=== PATIENT | female | born 1960 | race Caucasian/White ===

== ENCOUNTER → 2017-11-19 09:26 | Outpatient (CLI) | payer MEDICARE | END | disposition home or self-care (01) | LOC: D.RT 09:26 | DX: J44.9 Chronic obstructive pulmonary disease, unspecified (principal) ==

== ENCOUNTER → 2018-02-04 08:38 | Outpatient (CLI) | payer MEDICARE, MEDICAID ==
[~2018-02-04] VITALS: Ht 157.5 cm; Wt 117.0 kg
[2018-02-04 10:14] VITALS: Ht 157.5 cm; Wt 117.0 kg
== END | disposition home or self-care (01) ==
LOC: D.FANS 08:38
DX: E66.01 Morbid (severe) obesity due to excess calories (principal)

== ENCOUNTER → 2018-03-13 08:01 | Day surgery (SDC) | payer MEDICARE, MEDICAID ==
[2018-02-04 10:14] VITALS: BMI 47.2
[~2018-03-13 08:01] MED LIST: ALBUTEROL2.5 MG/3 M INH; AMBIEN10 MG PO; CELEBREX200 MG PO; LIPITOR40 MG PO; LYRICA150 MG PO; METOPROLOL TART50 MG PO; NORCO 10-325 TA1 TAB PO; NORVASC10 MG PO; RANITIDINE HCL150 M1 PO; SINGULAIR10 MG PO; SYMBICORT 16010.2 GM INH; ULTRAM50 MG PO
[2018-03-19 07:16] VITALS: BMI 46.9
== END | disposition home or self-care (01) ==
LOC: D.OPS 08:01
DX: E66.01 Morbid (severe) obesity due to excess calories (principal); Z01.812 Encounter for preprocedural laboratory examination

== ENCOUNTER 2018-03-19 06:20 | Day surgery (SDC) | payer MEDICARE, MEDICAID ==
[~2018-03-19] VITALS: Ht 157.5 cm; Wt 116.4 kg
[2018-03-19] MEDS ORDERED: RANITIDINE HCL150 M1 PO (07:02)
[2018-03-19] MEDS ORDERED: NORCO 10-325 TA1 TAB PO (07:03)
[2018-03-19 07:04] LABS: CALC OSMOLALITY 281 mosm/kg (275-300); CALCIUM 9.1 mg/dL (8.5-10.1); CARBON DIOXIDE 30.5 mmol/L (21.0-32.0); CHLORIDE - SERUM 103 mmol/L (98-107); CREATININE - SERUM 0.8 mg/dL (0.6-1.3); GLUCOSE 106 mg/dL (74-106); POTASSIUM - SERUM 3.9 mmol/L (3.5-5.1); SODIUM 141 mmol/L (136-145); UREA NITROGEN 15 mg/dL (7-18); eGFR NON AFRICAN AMERICAN 78 mL/min (90-120)
[2018-03-19] MEDS ORDERED: CELEBREX200 MG PO (07:04)
[2018-03-19] MEDS ORDERED: AMBIEN10 MG PO (07:04)
[2018-03-19] MEDS ORDERED: ULTRAM50 MG PO (07:05)
[2018-03-19] MEDS ORDERED: SINGULAIR10 MG PO (07:05)
[2018-03-19] MEDS ORDERED: ALBUTEROL2.5 MG/3 M INH (07:06)
[2018-03-19 07:07] LABS: BASOPHILS 0.9 % (0-2); EOSINOPHILS 4.2 % (0-7); HEMATOCRIT 37.5 % (36.0-48.0); HEMOGLOBIN 11.9 g/dL (12-16); IMMATURE GRANULOCYTES 0.3 % (0-5); LYMPHOCYTES 32.3 % (15-50); MCH 27.5 pg (26.0-34.0); MCHC 31.7 g/dL (31.0-37.0); MCV 86.6 fL (80.0-100.0); MEAN PLATELET VOLUME 11.9 fL (7.4-10.4); MONOCYTES 8.9 % (2-11); NEUTROPHILS 53.4 % (40-80); PLATELET COUNT 238 10x3/uL (130-400); RBC 4.33 10x6/uL (4.00-5.40); RDW 14.8 % (11.5-14.5); WBC 6.7 10x3/uL (4.8-10.8)
[2018-03-19] MEDS ORDERED: METOPROLOL TART50 MG PO (07:07)
[2018-03-19] MEDS ORDERED: LIPITOR40 MG PO (07:08)
[2018-03-19] MEDS ORDERED: NORVASC10 MG PO (07:08)
[2018-03-19] MEDS ORDERED: LYRICA150 MG PO (07:08)
[2018-03-19] MEDS ORDERED: SYMBICORT 16010.2 GM INH (07:09)
[2018-03-19 07:16] VITALS: BP 142/61; Ht 157.5 cm; Wt 116.4 kg
== END 2018-03-19 08:58 | disposition home or self-care (01) ==
LOC: D.OPS 06:20
PROVIDERS: Anesthesiology
DX: K21.9 Gastro-esophageal reflux disease without esophagitis (principal); K29.50 Unspecified chronic gastritis without bleeding; B96.81 Helicobacter pylori [H. pylori] as the cause of diseases classified elsewhere; E66.01 Morbid (severe) obesity due to excess calories; Z01.812 Encounter for preprocedural laboratory examination; Z68.42 Body mass index [BMI] 45.0-49.9, adult

== ENCOUNTER → 2018-04-04 10:14 | Outpatient (CLI) | payer MEDICARE, MEDICAID ==
[2018-03-19 07:16] VITALS: BMI 46.9
[2018-04-04 11:34] LABS: HELICOBACTER PYLORI IGG POSITIVE (NEGATIVE)
[2018-04-04 11:36] LABS: INR 0.97 (0.85-1.17); PROTIME 12.4 SECONDS (11.6-15.0)
[2018-04-04 11:37] LABS: APTT 30.4 SECONDS (22.8-39.4)
[2018-04-04 11:45] LABS: ALBUMIN 3.3 g/dL (3.4-5.0); ALKALINE PHOSPHATASE 87 U/L (46-116); ALT (SGPT) 25 U/L (10-68); BILIRUBIN - DIRECT 0.09 mg/dL (0.00-0.30); BILIRUBIN - INDIRECT 0.16 mg/dL (0.00-1.00); BILIRUBIN - TOTAL 0.25 mg/dL (0.2-1.3); CALC OSMOLALITY 285 mosm/kg (275-300); CALCIUM 8.5 mg/dL (8.5-10.1); CARBON DIOXIDE 30.2 mmol/L (21.0-32.0); CHLORIDE - SERUM 106 mmol/L (98-107); CHOL - HDL RATIO 4.1 ratio (2.3-4.1); CHOLESTEROL, TOTAL 176 mg/dL (0-200); CREATININE - SERUM 0.8 mg/dL (0.6-1.3); GLUCOSE 90 mg/dL (74-106); HDL CHOLESTEROL 43 mg/dL (32-96); LDL CHOLESTEROL 99 mg/dL (0-100); LDL-HDL RATIO 2.3 ratio (1.5-3.5); PROTEIN - SERUM 7.3 g/dL (6.4-8.2); SODIUM 143 mmol/L (136-145); THYROID STIMULATING HORMONE 2.84 uIU/mL (0.36-3.74); TRIGLYCERIDE 170 mg/dL (30-200); UREA NITROGEN 16 mg/dL (7-18); eGFR NON AFRICAN AMERICAN 78 mL/min (90-120)
[2018-04-04 12:02] LABS: BASOPHILS 1.1 % (0-2); EOSINOPHILS 5.4 % (0-7); HEMATOCRIT 36.8 % (36.0-48.0); HEMOGLOBIN 11.6 g/dL (12-16); IMMATURE GRANULOCYTES 0.2 % (0-5); LYMPHOCYTES 38.5 % (15-50); MCH 27.5 pg (26.0-34.0); MCHC 31.5 g/dL (31.0-37.0); MCV 87.2 fL (80.0-100.0); MEAN PLATELET VOLUME 12.2 fL (7.4-10.4); MONOCYTES 10.2 % (2-11); NEUTROPHILS 44.6 % (40-80); PLATELET COUNT 217 10x3/uL (130-400); RBC 4.22 10x6/uL (4.00-5.40); RDW 14.8 % (11.5-14.5); WBC 5.6 10x3/uL (4.8-10.8)
== END | disposition home or self-care (01) ==
LOC: D.LAB 10:14
PROVIDERS: Surgery
DX: Z01.812 Encounter for preprocedural laboratory examination (principal); I10 Essential (primary) hypertension; J44.9 Chronic obstructive pulmonary disease, unspecified; E78.5 Hyperlipidemia, unspecified

== ENCOUNTER → 2018-05-09 08:00 | Outpatient (CLI) | payer MEDICARE, MEDICAID ==
[2018-03-19 07:16] VITALS: BMI 46.9
== END | disposition home or self-care (01) ==
LOC: D.MAMMO 03-13 13:00
PROVIDERS: ATTEND Nurse Practitioner Family
DX: Z12.31 Encounter for screening mammogram for malignant neoplasm of breast (principal)

== ENCOUNTER 2018-05-21 08:39 | Inpatient (IN) | payer MEDICARE, MEDICAID ==
[~2018-05-21] VITALS: Ht 157.5 cm; Wt 118.6 kg
[2018-06-03 09:45] LABS: HEMATOCRIT 37.4 % (36.0-48.0); HEMOGLOBIN 11.8 g/dL (12-16); MCH 27.6 pg (26.0-34.0); MCHC 31.6 g/dL (31.0-37.0); MCV 87.4 fL (80.0-100.0); MEAN PLATELET VOLUME 11.3 fL (7.4-10.4); RBC 4.28 10x6/uL (4.00-5.40); RDW 14.9 % (11.5-14.5); WBC 5.6 10x3/uL (4.8-10.8)
[2018-06-03 09:59] LABS: ANION GAP 10.2 mmol/L (8-16); CALCIUM 8.8 mg/dL (8.5-10.1); CARBON DIOXIDE 31.9 mmol/L (21.0-32.0); CREATININE - SERUM 0.9 mg/dL (0.6-1.3); POTASSIUM - SERUM 4.1 mmol/L (3.5-5.1)
[2018-06-04 06:48] VITALS: BP 128/71; BMI 48.4
[2018-06-04 11:17] VITALS: BP 133/53
[2018-06-04 11:26] VITALS: BP 133/53; Ht 157.5 cm; Wt 118.6 kg
--- NOTE | 2018-06-04 11:46 | NUR ---
RECEIVED PT FROM VINNY RN IN [facility]OVERY, PT IS ASLEEP AND EASILY AWAKEDNED TO ANSWER QUESTIONS AND FOLLOW DIRECTIONS. 5 LAP SITES ON ABD AREA CDI. ADMINISTERED MEDS PER MAY AND SET UP ANIMAL SCIENCE INSTRUCTOR FOR PT, INSTRUCTED PT HOW TO USE ANIMAL SCIENCE INSTRUCTOR, ALL QUESTIONS ANSWERED, NO OTHER NEEDS VOICED. ASSUME PT CARE
--- NOTE | 2018-06-04 13:07 | NUR ---
PT LYING IN BED, EASILY AWAKENED, PT STATES PAIN IS NOT BAD IF SHE STAYS STILL, STATES SHE IS USING PAIN BUTTON, WATER AT BEDSIDE WITH MEDICINE CUPS, NO OTHER NEEDS VOICED, CONTINUE WITH PLAN OF CARE
--- NOTE | 2018-06-04 15:45 | NUR ---
ASSISTED PT TO RESTROOM PT INCISION ON UPPER RT SIDE DRAINING, CLEANED AND REINFORCED WITH LARGE BANDAGE. PLACED BANDAGE ON LOWER ABDOMEN TO SCRATCH THAT WAS BLEEDING WELL. SHORTENED PT IV LINE AND GAVE PT BOLUS PT INSOLE PRESSER MAXED TIME LIMIT. CHANGED PT GOWN. NO OTHER NEEDS VOICED, CONTINUE WITH PLAN OF CARE
[2018-06-04 21:11] VITALS: BP 151/66
[2018-06-05 01:32] VITALS: BP 160/74
--- NOTE | 2018-06-05 02:18 | NUR ---
AWAKE MEDS GIVEN PER MAR. RATES PAIN LEVEL #7 TORADOL 30MG IVP GIVEN FOR PAIN CONTROL.
[2018-06-05 05:18] VITALS: BP 148/62
[2018-06-05 07:13] LABS: BASOPHILS 0 % (0-2); EOSINOPHILS 0 % (0-7); HEMATOCRIT 31.7 % (36.0-48.0); HEMOGLOBIN 9.9 g/dL (12-16); IMMATURE GRANULOCYTES 0.2 % (0-5); LYMPHOCYTES 11.9 % (15-50); MCHC 31.2 g/dL (31.0-37.0); MCV 86.4 fL (80.0-100.0); MEAN PLATELET VOLUME 11.8 fL (7.4-10.4); MONOCYTES 7.4 % (2-11); NEUTROPHILS 80.5 % (40-80); PLATELET COUNT 190 10x3/uL (130-400); RBC 3.67 10x6/uL (4.00-5.40); RDW 15.2 % (11.5-14.5)
[2018-06-05 07:24] LABS: WBC 8.6 10x3/uL (4.8-10.8)
[2018-06-05 07:26] LABS: ALBUMIN 3.1 g/dL (3.4-5.0); ALKALINE PHOSPHATASE 86 U/L (46-116); ALT (SGPT) 58 U/L (10-68); BILIRUBIN - TOTAL 0.42 mg/dL (0.2-1.3); CALC OSMOLALITY 282 mosm/kg (275-300); CALCIUM 8.5 mg/dL (8.5-10.1); CARBON DIOXIDE 29.5 mmol/L (21.0-32.0); CHLORIDE - SERUM 106 mmol/L (98-107); CREATININE - SERUM 0.8 mg/dL (0.6-1.3); GLUCOSE 115 mg/dL (74-106); POTASSIUM - SERUM 4.4 mmol/L (3.5-5.1); PROTEIN - SERUM 6.8 g/dL (6.4-8.2); SODIUM 141 mmol/L (136-145); UREA NITROGEN 14 mg/dL (7-18); eGFR NON AFRICAN AMERICAN 78 mL/min (90-120)
[2018-06-05] MEDS ORDERED: ZOFRAN ODT4 MG/UDTAB PO (08:17)
[2018-06-05] MEDS ORDERED: OXYCODONE HCL5 M1 PO (08:17)
[2018-06-05 09:19] VITALS: BP 142/69
== END 2018-06-05 11:01 | disposition home or self-care (01) | DRG 621 ==
LOC: D.MS 06-04 06:00 → D.SDCHOLD 06-04 06:00 → D.MS 06-04 11:10
PROVIDERS: Anesthesiology; ADMIT Surgery; ATTEND Surgery
PROC: 0DB64Z3 Excision of Stomach, Percutaneous Endoscopic Approach, Vertical (ICD-10-PCS; principal; 2018-06-04 08:15)
PROC: 0BQT4ZZ Repair Diaphragm, Percutaneous Endoscopic Approach (ICD-10-PCS; 2018-06-04 08:15)
DX: E66.01 Morbid (severe) obesity due to excess calories (principal); Z68.42 Body mass index [BMI] 45.0-49.9, adult; J44.9 Chronic obstructive pulmonary disease, unspecified; E78.5 Hyperlipidemia, unspecified; I10 Essential (primary) hypertension; K44.9 Diaphragmatic hernia without obstruction or gangrene

== ENCOUNTER 2018-06-29 22:05 | Emergency (ER) | payer MEDICARE, MEDICAID ==
[~2018-06-29] VITALS: Ht 157.5 cm; Wt 109.1 kg
[~2018-06-29 22:05] MED LIST changes: +OXYCODONE HCL5 M1 PO; +ZOFRAN ODT4 MG/UDTAB PO
[2018-06-29 22:23] VITALS: Ht 157.5 cm; Wt 109.1 kg
[2018-06-29 23:05] LABS: BASOPHILS 0.2 % (0-2); EOSINOPHILS 1.2 % (0-7); HEMATOCRIT 36.5 % (36.0-48.0); HEMOGLOBIN 11.4 g/dL (12-16); IMMATURE GRANULOCYTES 0.2 % (0-5); LYMPHOCYTES 10.4 % (15-50); MCH 27.3 pg (26.0-34.0); MCHC 31.2 g/dL (31.0-37.0); MCV 87.5 fL (80.0-100.0); MEAN PLATELET VOLUME 12.4 fL (7.4-10.4); MONOCYTES 10.5 % (2-11); NEUTROPHILS 77.5 % (40-80); RBC 4.17 10x6/uL (4.00-5.40); RDW 15.8 % (11.5-14.5); WBC 10.9 10x3/uL (4.8-10.8)
[2018-06-29 23:11] LABS: PLATELET COUNT 151 10x3/uL (130-400)
[2018-06-29 23:14] LABS: APPEARANCE HAZY (CLEAR); BACTERIA FEW /hpf (NONE SEEN); BILIRUBIN NEGATIVE (NEGATIVE); COLOR ORANGE (YELLOW); EPITHELIAL CELLS OCC /hpf (0-5); GLUCOSE NEGATIVE (NEGATIVE); KETONE NEGATIVE (NEGATIVE); NITRITE NEGATIVE (NEGATIVE); PROTEIN NEGATIVE (NEGATIVE); RED CELLS - URINE 0-5 /hpf (0-5); UROBILINOGEN NORMAL (NORMAL)
[2018-06-29 23:21] LABS: ALBUMIN 3.3 g/dL (3.4-5.0); ALKALINE PHOSPHATASE 112 U/L (46-116); ALT (SGPT) 37 U/L (10-68); BILIRUBIN - TOTAL 0.87 mg/dL (0.2-1.3); CALC OSMOLALITY 278 mosm/kg (275-300); CALCIUM 9.1 mg/dL (8.5-10.1); CARBON DIOXIDE 30.4 mmol/L (21.0-32.0); CHLORIDE - SERUM 103 mmol/L (98-107); GLUCOSE 109 mg/dL (74-106); POTASSIUM - SERUM 3.9 mmol/L (3.5-5.1); PROTEIN - SERUM 7.5 g/dL (6.4-8.2); SODIUM 139 mmol/L (136-145); UREA NITROGEN 13 mg/dL (7-18); eGFR NON AFRICAN AMERICAN 60 mL/min (90-120)
[2018-06-29 23:30] LABS: AMYLASE - SERUM 10 U/L (25-115); LIPASE 74 U/L (73-393); TROPONIN-I < 0.017 ng/mL (0.000-0.060)
[2018-06-29] MEDS ORDERED: PHENERGAN DM SYR5 ML PO (23:33)
[2018-06-29] MEDS ORDERED: AMOXICILLIN500 M1 PO (23:33)
[2018-06-30 00:08] VITALS: BP 128/75
== END 2018-06-30 00:09 | disposition home or self-care (01) ==
LOC: D.ER 22:05
PROVIDERS: Family Medicine
DX: J02.0 Streptococcal pharyngitis (principal); R11.0 Nausea; R53.1 Weakness

== ENCOUNTER → 2019-10-12 08:21 | Outpatient (CLI) | payer MEDICARE, MEDICAID ==
[2018-06-29 22:23] VITALS: BMI 44.0
[~2019-10-12 08:21] MED LIST changes: +AMOXICILLIN500 M1 PO; +PHENERGAN DM SYR5 ML PO
== END | disposition home or self-care (01) ==
LOC: D.LAB 08:21
PROVIDERS: ATTEND Internal Medicine Pulmonary Disease
DX: Z11.59 Encounter for screening for other viral diseases (principal)

== ENCOUNTER → 2019-10-27 08:07 | Outpatient (CLI) | payer MEDICARE, MEDICAID ==
[2018-06-29 22:23] VITALS: BMI 44.0
== END | disposition home or self-care (01) ==
LOC: D.LAB 08:07
PROVIDERS: ATTEND Internal Medicine Pulmonary Disease
DX: Z13.9 Encounter for screening, unspecified (principal); Z11.59 Encounter for screening for other viral diseases

== ENCOUNTER → 2019-11-03 08:05 | Outpatient (CLI) | payer MEDICARE, MEDICAID ==
[2018-06-29 22:23] VITALS: BMI 44.0
== END | disposition home or self-care (01) ==
LOC: D.LAB 08:05
PROVIDERS: ATTEND Internal Medicine Pulmonary Disease
DX: Z13.9 Encounter for screening, unspecified (principal)

== ENCOUNTER → 2019-11-06 07:59 | Outpatient (CLI) | payer MEDICARE, MEDICAID ==
[2018-06-29 22:23] VITALS: BMI 44.0
== END | disposition home or self-care (01) ==
LOC: D.RT 10-15 08:30
PROVIDERS: ATTEND Internal Medicine Pulmonary Disease
DX: Z11.59 Encounter for screening for other viral diseases (principal); J44.9 Chronic obstructive pulmonary disease, unspecified